=== PATIENT | female | born 1965 | race Caucasian/White ===

== ENCOUNTER 2017-11-05 08:24 | Outpatient (CLI) | payer BC ==
--- NOTE | 2017-11-05 11:28 | ULT ---
HEPATIC ULTRASOUND: HISTORY: Cirrhosis. TECHNIQUE: Multiplanar, shetty scale, and color Doppler images were obtained in a right upper quadrant abdominal u ltrasound of the liver. Spectral analysis of the Doppler waveforms of the hepatic and splenic vessel s were performed. FINDINGS: Liver is slightly heterogeneous in echotexture without focal lesions or intrahepatic ductal dilatatio n. The gallbladder is distended without stones, sludge, gallbladder wall thickening, or pericholecys tic fluid. The common bile duct is normal measuring 3 mm. Normal directional flow is seen within the hepatic and splenic vessels. The spleen is normal in echo genicity and slightly enlarged measuring 13.2 cm in length. Limited visualization of the pancreas is unremarkable. The right kidney was not imaged. IMPRESSION: 1. Cirrhotic liver without focal liver lesions. 2. Splenomegaly. POS: [facility]
== END 2017-11-05 08:25 | disposition home or self-care (01) ==
LOC: ULT 08:24
PROVIDERS: ATTEND Internal Medicine Gastroenterology
DX: K70.30 Alcoholic cirrhosis of liver without ascites (principal); D61.818 Other pancytopenia; R16.1 Splenomegaly, not elsewhere classified; Z87.19 Personal history of other diseases of the digestive system
CPT/HCPCS: 76705

== ENCOUNTER 2018-04-11 11:43 | Day surgery (SDC) | payer BC ==
[2018-04-08 10:22] VITALS: BMI 27.1
[~2018-04-11 11:43] MED LIST: Lidocaine 1% PF 5 ML VIAL ONE; PROPOFOL 200 MG/20 ML VIAL ONE
[2018-04-11 12:58] LABS: INR-International Normal Ratio 1.3; Prothrombin Time 16.8 SEC (12.0-14.7)
[2018-04-11 13:10] LABS: ALT (SGPT) 16 U/L (8-55); AST (SGOT) 36 U/L (5-34); Albumin 3.2 g/dL (3.5-5.0); Alkaline Phosphatase 111 U/L (40-150); Anion Gap 13 mmol/L (10-20); BUN (Urea Nitrogen) 5 mg/dL (7.0-18.7); Bilirubin, Total 1.9 mg/dL (0.2-1.2); Calc. Creatinine Clearance 139 mL/min (70-130); Calcium 9.2 mg/dL (7.8-10.44); Carbon Dioxide 23 mmol/L (22-29); Chloride 106 mmol/L (98-107); Estimated GFR-MDRD Greater than 90; Globulin 3.9 g/dL (2.4-3.5); Glucose 103 mg/dL (70-105); Magnesium 1.4 mg/dL (1.6-2.6); Potassium 3.5 mmol/L (3.5-5.1); Protein, Total 7.1 g/dL (6.0-8.3); Sodium 138 mmol/L (136-145)
[2018-04-11 13:20] LABS: Hemoglobin 10.6 g/dL (12.0-16.0); Mean Corpuscular HGB CONC 34.2 g/dL (32.0-36.0); Mean Corpuscular Hemoglobin 34.2 pg (27.0-31.0); Mean Platelet Volume 7.8 fL (7.4-10.4); Platelet Count 36 thou/uL (130-400); RBC Distribution Width 13.7 % (11.5-14.5); Red Blood Cell (RBC) Count 3.11 mill/uL (4.20-5.40); White Blood Cell (WBC) Count 3.8 thou/uL (4.8-10.8)
[2018-04-11 13:24] LABS: Eosinophils 5 % (0-10); Lymphocytes 29 % (21-51); MDiff Complete? YES; Monocytes 8 % (0-10); Neutrophil 58 % (42-75); PLT Morphology Comment Appears Decreased; Polychromasia SLIGHT = 2-3 cells (100X) (0-2/hpf)
[2018-04-11 13:46] LABS: Vitamin B12 Greater than 2000 pg/mL (211-911)
--- NOTE | 2018-04-11 15:24 | OP ---
DATE OF PROCEDURE: 04/11/2018 SURGEON: Dr. Carlin Dennis PROCEDURE: Esophagogastroduodenoscopy with biopsy and colonoscopy. PREOPERATIVE DIAGNOSES: Screening for esophageal varices and cirrhosis with portal hypertension and colon cancer screening. OPERATIVE NOTE: Informed consent was obtained from the patient. She was sedated with total intraven ous anesthesia. The bite block was placed and the endoscope was advanced easily to the second portio n of the duodenum and retroflexion was performed in the stomach. The esophagus had 3 columns of grad e I-II small esophageal varices without red signs. There was mild grade A erosive esophagitis in the distal esophagus. There was mild portal hypertensive gastropathy in the fundus of the stomach. The re was nonerosive erythematous gastritis patchy in the antrum. There was erosive duodenitis in the f irst portion of the duodenum. The second portion of the duodenum was normal. Biopsies were taken fr om the antrum and body of the stomach to rule out H. pylori. The patient was turned around. Rectal exam was performed and was normal. The preparation quality wa s good. The colonoscope was advanced to the cecum where the ileocecal valve and appendiceal orifice were clearly identified. The colonic mucosa was normal throughout. Retroflexed views in the rectum were normal. IMPRESSION: 1. Three columns grade I-II varices, small, without red signs. 2. Mild portal hypertensive gastropathy in the fundus. 3. Nonerosive antral gastritis and erosive duodenitis in the first portion of the duodenum. Gastric biopsies were taken to rule out Helicobacter pylori. 4. Mild grade A erosive esophagitis. 5. Normal colonoscopy. RECOMMENDATIONS: 1. Await histopathology. 2. Repeat EGD in 1-2 years. 3. Repeat screening colonoscopy in 10 years.
== END 2018-04-11 14:30 | disposition home or self-care (01) ==
LOC: SDC 11:43
PROVIDERS: ATTEND Internal Medicine Gastroenterology
PROC: 0DJD8ZZ Inspection of Lower Intestinal Tract, Via Natural or Artificial Opening Endoscopic (ICD-10-PCS; principal; 2018-04-11)
PROC: 0DB78ZX Excision of Stomach, Pylorus, Via Natural or Artificial Opening Endoscopic, Diagnostic (ICD-10-PCS; principal; 2018-04-11)
DX: Z12.11 Encounter for screening for malignant neoplasm of colon (principal); K29.50 Unspecified chronic gastritis without bleeding; K29.80 Duodenitis without bleeding; K22.10 Ulcer of esophagus without bleeding; I10 Essential (primary) hypertension; E78.00 Pure hypercholesterolemia, unspecified; F32.9 Major depressive disorder, single episode, unspecified; K70.30 Alcoholic cirrhosis of liver without ascites; D69.6 Thrombocytopenia, unspecified; Z87.891 Personal history of nicotine dependence; Z79.899 Other long term (current) drug therapy
CPT/HCPCS: 36415; 80053; 82105; 82607; 82746; 83735; 85007; 85027; 85610; 88305; 88312; J2001; J2704

== ENCOUNTER 2018-04-28 08:47 | Outpatient (CLI) | payer BC | END 2018-04-28 08:48 | disposition home or self-care (01) | LOC: BICMAMMO 08:47 | PROVIDERS: ATTEND Obstetrics & Gynecology | DX: N63.20 Unspecified lump in the left breast, unspecified quadrant (principal) | CPT/HCPCS: 77066; G0279 ==

== ENCOUNTER 2018-05-23 09:29 | Outpatient (CLI) | payer BC ==
[2018-05-23] MEDS ORDERED: Gadobenate Dimeglumine 529 MG/1 ML (20ML VIAL) ONE (12:00)
== END 2018-05-23 09:30 | disposition home or self-care (01) ==
LOC: BICMRI 09:29
PROVIDERS: ATTEND Internal Medicine Gastroenterology
DX: K70.30 Alcoholic cirrhosis of liver without ascites (principal); N28.1 Cyst of kidney, acquired
CPT/HCPCS: 74183; A9579

== ENCOUNTER 2018-10-31 09:26 | Outpatient (CLI) | payer BC ==
--- NOTE | 2018-10-31 11:20 | ULT ---
HEPATIC ULTRASOUND WITH DUPLEX EVALUATION; Date: 10/31/18 INDICATION: History of cirrhosis. COMPARISON: Prior exam dated 11/05/17. FINDINGS: There is coarse echogenicity of the liver consistent with changes of cirrhosis. The spleen is enlarge d, measuring 13.5 cm. Visualized gallbladder is normal appearing. No sonographic Brown's sign is rep orted. Common bile duct measures 3.6 mm. There is appropriate hepatopetal flow seen within the hepati c vasculature. IMPRESSION: 1. Cirrhotic morphology of the liver with mild splenomegaly. 2. Appropriate hepatopetal flow demonstrated within the hepatic vasculature. POS: [facility]
== END 2018-10-31 09:27 | disposition home or self-care (01) ==
LOC: BICULT 09:26
PROVIDERS: ATTEND Internal Medicine Gastroenterology
DX: K70.30 Alcoholic cirrhosis of liver without ascites (principal); R01.1 Cardiac murmur, unspecified; R18.8 Other ascites; R16.1 Splenomegaly, not elsewhere classified
CPT/HCPCS: 76705

== ENCOUNTER 2019-08-16 14:51 | Outpatient (CLI) | payer BC ==
--- NOTE | 2019-08-16 16:54 | MMO ---
Bilateral MAMMO Bilat Screen [facility]. CLINICAL HISTORY: Patient is 54 years old and is seen for screening. The patient has no family history of breast cancer. The patient has no personal history of cancer. VIEWS: The views performed were: bilateral craniocaudal with tomosynthesis and bilateral mediolateral oblique with tomosynthesis. FILMS COMPARED: The present examination has been compared to prior imaging studies performed at [facility] on 12/02/2015, 12/14/2016, 12/21/2016 and 04/28/2018. This study has been interpreted with the assistance of computer-aided detection. MAMMOGRAM FINDINGS: There are scattered fibroglandular densities. There is a new equal density, oval mass measuring 11 millimeters seen in the anterior region of the right breast at 5 o'clock. In the left breast, there are no suspicious masses, calcifications or areas of architectural distortion. IMPRESSION: NEW MASS IN THE RIGHT BREAST REQUIRES ADDITIONAL EVALUATION. AN ULTRASOUND EXAM IS RECOMMENDED. THE RESULTS OF THIS EXAM WERE SENT TO THE PATIENT. ACR BI-RADS Category 0 - Incomplete: Need additional imaging evaluation. [facility] will notify the patient of the need for additional imaging services. MAMMOGRAPHY NOTE: 1. A negative mammogram report should not delay a biopsy if a dominant of clinically suspicious mass is present. 2. Approximately 10% to 15% of breast cancers are not detected by mammography. 3. Adenosis and dense breasts may obscure an underlying neoplasm. Reported by: SONYA CROOK MD Electonically Signed: [id number]
== END 2019-08-16 14:52 | disposition home or self-care (01) ==
LOC: BICMAMMO 14:51
PROVIDERS: ATTEND Obstetrics & Gynecology
DX: Z12.31 Encounter for screening mammogram for malignant neoplasm of breast (principal); N63.10 Unspecified lump in the right breast, unspecified quadrant
CPT/HCPCS: 77063; 77067

== ENCOUNTER 2019-08-23 12:49 | Outpatient (CLI) | payer BC ==
--- NOTE | 2019-08-23 14:10 | ULT ---
LIMITED RIGHT BREAST ULTRASOUND: 08/23/2019 PROVIDED CLINICAL HISTORY: Right breast mass. FINDINGS: Limited sonographic interrogation was performed at the 5 o'clock position in the region of mammograph ic concern. An aggregation of simple cysts is seen in this region, measuring about 9 mm in aggregate. No concerning sonographic findings are evident. IMPRESSION: BI-RADS category 2 - benign findings. Return to annual screening mammography recommended. POS: [facility]
== END 2019-08-23 12:50 | disposition home or self-care (01) ==
LOC: BICULT 12:49
PROVIDERS: ATTEND Obstetrics & Gynecology
DX: N63.10 Unspecified lump in the right breast, unspecified quadrant (principal)

== ENCOUNTER 2019-10-16 06:53 | Outpatient (CLI) | payer BC ==
--- NOTE | 2019-10-16 08:48 | ULT ---
HEPATIC SONOGRAM WITH DUPLEX EVALUATION: Date: 10/16/19 HISTORY: Hepatitis. Cirrhosis. COMPARISON: 10/31/18. FINDINGS: Gallbladder has a normal appearance without stone evident. Common duct is 0.5 cm. Liver has a heterog eneous echotexture similar in appearance to prior study with mild nodular contour. No focal mass or i ntrahepatic biliary dilatation. No free fluid. Spleen measures up to 13.1 cm with small adjacent splenule. Good color and spectral Doppler flow within the hepatic and splenic arteries. Portal venous flow is t owards the liver. Hepatic venous flow is towards the IVC. IMPRESSION: Cirrhotic appearance of the liver. Only sonographic finding of portal venous hypertension is mild spl enomegaly. Stable. POS: [facility]
== END 2019-10-16 06:54 | disposition home or self-care (01) ==
LOC: BICULT 06:53
PROVIDERS: ATTEND Physician Assistant Medical
DX: K70.30 Alcoholic cirrhosis of liver without ascites (principal); R10.11 Right upper quadrant pain; K26.9 Duodenal ulcer, unspecified as acute or chronic, without hemorrhage or perforation; R16.1 Splenomegaly, not elsewhere classified; K76.6 Portal hypertension
CPT/HCPCS: 76705

== ENCOUNTER 2020-11-25 13:29 | Outpatient (CLI) | payer BC ==
--- NOTE | 2020-11-25 14:13 | MMO ---
Bilateral MAMMO Bilat Screen [facility]. CLINICAL HISTORY: Patient is 55 years old and is seen for screening. The patient has no family history of breast cancer. The patient has no personal history of cancer. VIEWS: The views performed were: bilateral craniocaudal with tomosynthesis and bilateral mediolateral oblique with tomosynthesis. FILMS COMPARED: The present examination has been compared to prior imaging studies performed at [facility] on 12/21/2016, 04/28/2018, 08/16/2019 and 08/23/2019. This study has been interpreted with the assistance of computer-aided detection. MAMMOGRAM FINDINGS: There are scattered fibroglandular densities. Benign calcifications are noted bilaterally. There are no suspicious masses, suspicious calcifications, or new areas of architectural distortion. IMPRESSION: THERE IS NO MAMMOGRAPHIC EVIDENCE OF MALIGNANCY. A ROUTINE FOLLOW-UP MAMMOGRAM IN 1 YEAR IS RECOMMENDED. THE RESULTS OF THIS EXAM WERE SENT TO THE PATIENT. ACR BI-RADS Category 2 - Benign finding MAMMOGRAPHY NOTE: 1. A negative mammogram report should not delay a biopsy if a dominant of clinically suspicious mass is present. 2. Approximately 10% to 15% of breast cancers are not detected by mammography. 3. Adenosis and dense breasts may obscure an underlying neoplasm. Reported by: JOSE RODRIGUEZ MD Electonically Signed: [id number]
== END 2020-11-25 13:30 | disposition home or self-care (01) ==
LOC: BICMAMMO 13:29
PROVIDERS: ATTEND Family Medicine
DX: Z12.31 Encounter for screening mammogram for malignant neoplasm of breast (principal)
CPT/HCPCS: 77063; 77067

== ENCOUNTER 2022-05-06 09:56 | Outpatient (CLI) | payer BC | END 2022-05-06 09:57 | disposition home or self-care (01) | LOC: ULT 09:56 → BICULT 09:57 | PROVIDERS: ATTEND Internal Medicine Gastroenterology | DX: K70.30 Alcoholic cirrhosis of liver without ascites (principal) | CPT/HCPCS: 76705 ==

== ENCOUNTER 2022-05-06 09:59 | Outpatient (CLI) | payer BC | END 2022-05-06 10:00 | disposition home or self-care (01) | LOC: BICMAMMO 09:59 | PROVIDERS: ATTEND Family Medicine | DX: Z12.31 Encounter for screening mammogram for malignant neoplasm of breast (principal) | CPT/HCPCS: 77063; 77067 ==

== ENCOUNTER 2022-12-18 09:11 | Outpatient (CLI) | payer BC ==
[2022-12-18] MEDS ORDERED: Magnevist 469MG/ML 20 ML VIAL ONE (12:43)
== END 2022-12-18 09:12 | disposition home or self-care (01) ==
LOC: MRI 09:11
PROVIDERS: ATTEND Internal Medicine Gastroenterology
DX: R10.11 Right upper quadrant pain (principal); K70.30 Alcoholic cirrhosis of liver without ascites; I85.00 Esophageal varices without bleeding
CPT/HCPCS: 74183; A9579

== ENCOUNTER 2024-04-19 09:53 | Outpatient (CLI) | payer BC | END 2024-04-19 09:54 | disposition home or self-care (01) | LOC: BICULT 09:53 | PROVIDERS: ATTEND Internal Medicine Gastroenterology | DX: K74.60 Unspecified cirrhosis of liver (principal); I85.10 Secondary esophageal varices without bleeding; K76.6 Portal hypertension | CPT/HCPCS: 76705 ==

== ENCOUNTER 2025-05-24 13:49 | Emergency (ER) | payer BC | END 2025-05-24 14:23 | disposition home or self-care (01) | LOC: ERS 13:49 | DX: F43.0 Acute stress reaction (principal) | CPT/HCPCS: 99283 ==